=== PATIENT | male | born 1960 | race Caucasian/White ===

== ENCOUNTER 2016-09-13 10:07 | Emergency (ER) | payer OTHER ==
[~2016-09-13] VITALS: Ht 180.3 cm; Wt 100.0 kg
[~2016-09-13 10:07] MED LIST: CYCL1TAB29 PO; IBUP800T23 PO
[2016-09-13 10:09] VITALS: BP 158/82; PULSE 112; RESP 18; TEMP 97.9; O2SAT 98
--- NOTE | 2016-09-13 10:24 | PD ---
HPI Chief Complaint: Medication Refill Request Time Seen by Provider: 10:20 Travel History International Travel<30 days: No Contact w/Intl Traveler<30days: No Traveled to known affect area: No History of Present Illness HPI Patient comes in requesting a prescription for 1 Seroquel 400 mg tablet. Patient states that he has an appointment tomorrow to get his refill however is 1 short. Patient states he was unable sleep well last night secondary to this. States that he takes this for his bipolar disorder. Patient is a bottle with him shows a 30 day supply beings prescribed on the of last month. Patient denies other complaints or concerns. Denies any chest pain, shortness of breath , fevers, nausea, vomiting, or abdominal pain. PFSH Past Medical History Bipolar Disorder: Yes Anxiety: Yes High Cholesterol: Yes Diabetes: Yes Hypertension: Yes Immunizations Current: Yes Past Surgical History Neurologic Surgery: Yes (LUMBAR PUNCTURE X18) Social History Alcohol Use: No Tobacco Use: Yes (1.5 PPD) Substance Use: No Allergies-Medications (Allergen,Severity, Reaction): Coded Allergies: No Known Allergies (Unverified , 09/13/16) Reported Meds & Prescriptions Reported Meds & Active Scripts Active Seroquel (Quetiapine Fumarate) 400 Mg Tab 400 Mg PO HS Reported Metformin (Metformin HCl) 1,000 Mg Tab 1,000 Mg PO DAILY With a meal Gabapentin 300 Mg Cap 300 Mg PO BID Seroquel (Quetiapine Fumarate) 400 Mg Tab 400 Mg PO HS Review of Systems Except as stated in HPI: all other systems reviewed are Neg Physical Exam Narrative GENERAL: Well-developed, overly nourished, in no acute distress, and non-ill appearing. SKIN: Warm and dry. HEAD: Atraumatic. Normocephalic. EYES: Pupils equal and round. EOMI. No scleral icterus. No injection or drainage. ENT: No nasal bleeding or discharge. Mucous membranes pink and moist. NECK: Trachea midline. Supple. No nuclear rigidity. CARDIOVASCULAR: Regular rate and rhythm. No murmur appreciated. RESPIRATORY: No accessory muscle use. No respiratory distress. MUSCULOSKELETAL: No obvious deformities. No clubbing. No cyanosis. No edema. Full range of motion. NEUROLOGICAL: Awake and alert. No obvious cranial nerve deficits. Motor grossly within normal limits. Normal speech. PSYCHIATRIC: Appropriate mood and affect; insight and judgment normal. Data Data Last Documented VS Vital Signs Date Time Temp Pulse Resp B/P Pulse Ox O2 Delivery O2 Flow Rate FiO2 09/13/16 10:26 98 09/13/16 10:09 97.9 18 158/82 98 MDM Medical Decision Making Medical Screen Exam Complete: Yes Emergency Medical Condition: No Differential Diagnosis Bipolar, medication refill, other Narrative Course Patient in no obvious distress upon re-evaluation. Patient was asked if they wanted to speak to my attending, which the patient did not wish to do at this time. Any questions/concerns in reference to patient diagnosis/condition discussed and clarified prior to patient's discharge. Reinforced sheer importance of close follow up with patient's primary physician or primary care clinic. Instructed patient to return to ED immediately, if symptoms return/ worsen. Pt showed understanding of above instructions. Further instructions and recommendations were detailed in discharge paperwork. Pt ambulated without difficulty out of ED at discharge. Diagnosis Primary Impression: Medication refill Patient Instructions: General Instructions, Medication Refill, ED Additional Instructions: Follow-up with your primary care physician tomorrow as scheduled. Take all medication as prescribed. Return to the emergency department if symptoms get worse. Med/Other Pt SpecificInfo: Prescription(s) given Scripts Quetiapine (Seroquel)400 Mg [id number] Mg PO HS #1 TAB Ref 0 Prov:Andrei Leong MD 09/13/16 Disposition: 01 DISCHARGE HOME Condition: Stable Ochoa Almaguer Sep 13, 2016 10:23
[2016-09-13] MEDS ORDERED: METF1000 PO (10:25)
[2016-09-13] MEDS ORDERED: SERO400T PO ×2 (10:25→10:26)
[2016-09-13] MEDS ORDERED: GABA300C5 PO (10:25)
[2016-09-13 10:26] VITALS: PULSE 98
== END 2016-09-13 10:49 | disposition home or self-care (01) ==
LOC: NEPB 10:07
DX: F31.9 Bipolar disorder, unspecified (principal); E11.9 Type 2 diabetes mellitus without complications; I10 Essential (primary) hypertension; E78.00 Pure hypercholesterolemia, unspecified; F17.200 Nicotine dependence, unspecified, uncomplicated; Z79.84 Long term (current) use of oral hypoglycemic drugs; Z86.59 Personal history of other mental and behavioral disorders; Z76.0 Encounter for issue of repeat prescription
CPT/HCPCS: 99281